=== PATIENT | female | born 1940 | race Two or more races ===

== ENCOUNTER → 2016-09-13 | Outpatient (CLI) | payer MEDICARE | END | disposition home or self-care (01) | LOC: PCVCCLINIC 10:35 | PROVIDERS: ATTEND Internal Medicine | DX: I10 Essential (primary) hypertension (principal); E11.9 Type 2 diabetes mellitus without complications; E78.00 Pure hypercholesterolemia, unspecified; G45.9 Transient cerebral ischemic attack, unspecified; Z79.84 Long term (current) use of oral hypoglycemic drugs; Z79.899 Other long term (current) drug therapy | CPT/HCPCS: 93005; G0463 ==

== ENCOUNTER → 2017-03-28 | Outpatient (CLI) | payer MEDICARE ==
--- NOTE | 2017-03-28 17:09 | PCVCIMAG ---
APPROVED REPORT Study performed: 03/28/2017 10:52:23 EXAM: Comprehensive 2D, Doppler, and color-flow Echocardiogram Patient Location: Echo lab Room #: 2Status: routine BSA: 1.51 HR: 59 bpmBP: 122/74 mmHg Rhythm: NSR Other Information Study Quality: Good Risk Factors: Cardiac Risk Factors: HTN, Hyperlipidemia, DM Indications Diabetes CAD Chest Pain Hypertension/HDD 2D Dimensions LVEF(%): 68.92 (>50%) IVSd: 5.87 (7-11mm) LVDd: 38.13 mm PWd: 6.20 (7-11mm)Ascending Ao: 19.79 (22-36mm) LVDs: 23.64 (25-40mm) Left Atrium: 31.67 (27-40mm) Aortic Root: 18.71 mm LV Single Plane 4CH: 71.50 % LV Single Plane 2CH: 71.79 %Liu's LVEF: 71.64 % Biplane EF: 71.7 % Volumes Left Atrial Volume (Systole) Single Plane 4CH: 54.90 mLSingle Plane 2CH: 49.10 mL Biplane LA Volume: 52.00 mLLA ESV Index: 34.00 mL/m2 Aortic Valve AoV Peak Bradley.: 1.57 m/s AO Peak Gr.: 9.83 mmHgLVOT Max P.33 mmHg LVOT Max V: 0.89 m/s Mitral Valve E/A Ratio: 0.8 MV Decel. Time: 277.57 ms MV E Max Bradley.: 0.77 m/s MV A Bradley.: 1.00 m/s IVRT: 117.65 ms TDI E/Medial E': 15.40 Medial E' Bradley.: 0.05 m/s Pulmonary Valve PV Peak Bradley.: 0.91 m/sPV Peak Gr.: 3.33 mmHg Pulmonary Vein P Vein S: 0.74 m/sP Vein A: 0.33 m/s P Vein D: 0.30 m/sP Vein A Dur.: 100.3 msec P Vein S/D Ratio: 2.47 Tricuspid Valve TR Peak Bradley.: 2.28 m/s TR Peak Gr.: 20.78 mmHg TV Vmax: 0.72 m/sPA Pressure: 28.00 mmHg Left Ventricle The left ventricle is normal size. There is normal LV segmental wall motion. There is normal left ventricular wall thickness. Left ventricular systolic function is normal. The left ventricular ejection fraction is within the normal range. LVEF is 65-70%. Grade I - abnormal relaxation pattern. Right Ventricle The right ventricle is normal size. The right ventricular systolic function is normal. Atria Left atrium is at the upper limits of normal. The right atrium size is normal. Aortic Valve Aortic valve is trileaflet. Aortic valve leaflets are mildly thickened. No aortic regurgitation is present. There is no aortic valvular stenosis. Mitral Valve The mitral valve is normal in structure. There is no mitral valve regurgitation noted. No evidence of mitral valve stenosis. Tricuspid Valve The tricuspid valve is normal in structure. Trace tricuspid regurgitation. Pulmonic Valve The pulmonary valve is normal in structure. There is no pulmonic valvular regurgitation. Great Vessels The aortic root is normal in size. The ascending aorta is normal in size. IVC is normal in size and collapses with >50% inspiration Pericardium There is no pericardial effusion. There is no pleural effusion. <Conclusion> The left ventricle is normal size. LVEF is 65-70%. Grade I - abnormal relaxation pattern. The right ventricle is normal size. Left atrium is at the upper limits of normal. Aortic valve is trileaflet. Aortic valve leaflets are mildly thickened. There is no aortic valvular stenosis. There is no mitral valve regurgitation noted. Trace tricuspid regurgitation. IVC is normal in size and collapses with >50% inspiration There is no pericardial effusion.
== END | disposition home or self-care (01) ==
LOC: PCVCCLINIC 09:30
PROVIDERS: ATTEND Internal Medicine Cardiovascular Disease
DX: I25.10 Atherosclerotic heart disease of native coronary artery without angina pectoris (principal); E11.9 Type 2 diabetes mellitus without complications; I10 Essential (primary) hypertension; R07.9 Chest pain, unspecified
CPT/HCPCS: 93306

== ENCOUNTER → 2017-03-29 | Outpatient (CLI) | payer MEDICARE ==
[~2017-03-29] MED LIST: REGADENOSON 0.4 MG/5 ML DISP.SYRIN. IV ONE
--- NOTE | 2017-03-29 13:32 | PCVCIMAG ---
APPROVED REPORT Exam: Nuclear Stress Test Indication: Chest Pain,Fatigue with Exercise Patient Location: Out-Patient Stress Nurse: Audrey Roblero RN, Tina Collins RN SC Tech:Lien Poole [facility] Ht: 5 ft 4 in Wt: 146 lbs BSA: 1.71 m2 HR: 60 bpm BP: 197/77 mmHg BMI: 25.0 Rhythm: SB Medical History Medical History: Age,HTN, Hyperlipidemia,TIA, Medications: Amlodipine,Irbesartan,Bystolic,Crestor, Spironolactone, Allergies: Nabeel Inhibitors Pretest Chest Pain Characteristics: No chest pain Exercise History: Physically active Meds Held (24 hrs): Bystolic Stress Test Details Stress Test: Pharmacologic stress testing performed using 0.4 mg of regadenoson per 5 mL given IV over 10 seconds. Reason for pharmacologic stress test: physical limitation. HR Resting HR: 60 bpmMax Heart Rate (APMHR): 144 bpm Max HR Achieved: 105 bpmTarget HR (85% APMHR): 122 bpm % of APMHR: 72 Recovery HR: 75 bpm BP Resting BP: 197/77 mmHg Max BP: 162/70 mmHg ECG Resting ECG: Sinus Bradycardia Stress ECG: Sinus Tachycardia ST Change: Non-ischemic Recovery ECG: Sinus Rhythm Clinical Reason for Termination: Completed protocol Stress Symptoms: CP, Dyspnea,NV, Headache, Lightheaded Exercise duration: min 55 sec Exercise capacity: 1.0 METs Symptoms resolved with caffeine. NM EXAM: Myocardial Perfusion REST/STRESS Imaging Protocol: Rest Tc-99m/Stress Tc-99m 1 day Resting Data Rest SPECT myocardial perfusion imaging was performed in supine position 60 minutes following the intravenous injection of 15.0 mCi of Tc-99m Sestamibi. Time of rest injection: 1030 Date: 03/29/2017 Administration Route: IV Administration Site: Left AC Pharmacologic Stress Pharmacologic stress test was performed by injecting Regadenoson 0.4 mg IV push followed by the intravenous injection of 42.7 mCi of Tc-99m Sestamibi. Time of stress injection: 1200 Date: 03/29/2017 Administration Route: IV Administration Site: Left AC The images were gated to evaluate regional wall motion and calculate left ventricular ejection fraction. Study Quality Study: Good Study Data Post stress, the left ventricular ejection was 80%.. SSS: 1 SRS: 7 SDS: 0 TID = 0.88. Perfusion Normal left ventricular perfusion. Normal perfusion on both the stress and rest images. Wall Motion Normal left ventricular wall motion. Nuclear Conclusion ECG Findings: negative for ischemia Clinical Findings: non-diagnostic Nuclear Findings: negative for ischemia This study is of low probability for inducible ischemia or prior infarct. Normal global and segmental LV systolic function.
== END | disposition home or self-care (01) ==
LOC: PCVCIMAG 10:22
PROVIDERS: ATTEND Internal Medicine Cardiovascular Disease
DX: R07.9 Chest pain, unspecified (principal); R53.83 Other fatigue; R06.02 Shortness of breath; I10 Essential (primary) hypertension; E78.5 Hyperlipidemia, unspecified; G45.9 Transient cerebral ischemic attack, unspecified
CPT/HCPCS: 78452; 93017; A9500; J2785

== ENCOUNTER → 2017-09-17 | Outpatient (CLI) | payer MEDICARE | END | disposition home or self-care (01) | LOC: PCVCCLINIC 11:23 | DX: I10 Essential (primary) hypertension (principal); G45.9 Transient cerebral ischemic attack, unspecified; E78.5 Hyperlipidemia, unspecified; E11.9 Type 2 diabetes mellitus without complications; E78.00 Pure hypercholesterolemia, unspecified; Z79.899 Other long term (current) drug therapy; Z79.01 Long term (current) use of anticoagulants; Z88.8 Allergy status to other drugs, medicaments and biological substances | CPT/HCPCS: 80061; 93005; G0463 ==

== ENCOUNTER → 2018-07-09 | Outpatient (CLI) | payer MEDICARE | END | disposition home or self-care (01) | LOC: PCVCCLINIC 11:22 | PROVIDERS: ATTEND Internal Medicine Cardiovascular Disease | DX: I25.119 Atherosclerotic heart disease of native coronary artery with unspecified angina pectoris (principal); I10 Essential (primary) hypertension; E78.00 Pure hypercholesterolemia, unspecified; G45.9 Transient cerebral ischemic attack, unspecified; E11.9 Type 2 diabetes mellitus without complications; Z88.8 Allergy status to other drugs, medicaments and biological substances | CPT/HCPCS: 36415; 80061; 93005; G0463 ==